=== PATIENT | male | born 1985 | race Caucasian/White ===

== ENCOUNTER 2025-01-16 17:50 | Emergency (ER) | payer OTHER, SELFPAY ==
--- NOTE | 2025-01-16 17:58 | ED.UPPEXIN ---
HPI - Extremity Injury (Upper) General Chief Complaint: Extremity Injury, Upper Stated Complaint: INJURED L HAND Time Seen by Provider: 01/16/25 18:00 Source: patient, RN notes reviewed and old records reviewed Mode of arrival: ambulatory Limitations: no limitations History of Present Illness HPI narrative: Patient to [employer] police tox presents with complaints of dog bite to left hand. He reports that injury happened this afternoon while at work. He arrives with a pressure dressing in place, no active bleeding. Retains full range of motion of the affected hand. Denies any numbness or tingling. Has not taken any medication for his symptoms. He is unsure of his last tetanus, this will be updated today. He denies other injury and trauma. Voices no other concerns or complaints at this time Related Data Allergies Allergy/AdvReac Type Severity Reaction Status Date / Time NKDA Allergy Mild Other Uncoded 01/16/25 17:54 Review of Systems Review of Systems: All systems reviewed & are unremarkable except as noted in HPI and below Constitutional: Constitutional: Reports no additional constitutional complaints ENT: Reports system reviewed and no additional complaints, except as documented Cardiovascular: Cardiovascular: Reports no additional cardiovascular complaints Respiratory: Respiratory: Reports no additional respiratory complaints Gastrointestinal: Gastrointestinal: Reports no additional gastrointestinal complaints Musculoskeletal: Musculoskeletal: Reports no additional musculoskeletal complaints and Reports as per HPI Integumentary/Breasts: Skin/Breast: Reports system reviewed and no additional complaints, except as docu [facility] Social History Social History Smoking status: Never smoker Alcohol intake: current Comments At the time of my signature, I reviewed and agree with the nursing past medical, surgical, social, and family history. There is no relevant family history pertinent to the patient complaint. Exam Const: General: cooperative, no acute distress, alert and awake Orientation/consciousness: oriented to person, oriented to place and oriented to time HENMT: Head: normal to inspection Resp: Effort & Inspection: normal respiratory effort and able to speak in complete sentences Auscultation: clear to auscultation bilaterally, no crackles, no rales, no rhonchi and no wheezes Cardio: Palpation: normal PMI Rate: regular rate Rhythm: regular rhythm Heart sounds: S1 normal heart sound present and S2 normal heart sound present Neuro: General: oriented to person, oriented to place and oriented to time Cranial nerves: Yes CN's II-XII intact bilaterally Extrem: Right upper extremity: Extremity exam: right hand normal capillary refill, neuromotor exam normal, neurosensory exam normal and normal ROM of fingers Hand/finger images:  1. small shallow puncture wound 2. 0.5 cm lac, no active bleeding Psych: Appearance: grossly normal Thought process: Normal thought process present Insight: Good insight present (Psych) Judgement: Good judgement present (Psych) Course Course Level of Care: Express Care Visit Vital Signs Vital signs: Vital Signs Temperature 98.8 F 01/16/25 18:01 Pulse Rate 83 01/16/25 18:01 Respiratory Rate 16 01/16/25 18:01 Blood Pressure 146/81 H 01/16/25 18:01 Pulse Oximetry 100 01/16/25 18:01 Temperature 98.8 F 01/16/25 18:01 Pulse Rate 83 01/16/25 18:01 Respiratory Rate 16 01/16/25 18:01 Blood Pressure 146/81 H 01/16/25 18:01 Pulse Oximetry 100 01/16/25 18:01 Reviewed MDM - Extremity Injury (Upper) MDM Narrative Medical decision making narrative: Patient with dog bite to the left hand. Wound was irrigated and wrapped. No active bleeding. CMS intact. Tetanus updated, start Augmentin. Follow up with primary care provider. Emergency department for new or worse symptoms. Discharge instructions reviewed with patient, as well as provided in writing per nursing staff. The instructions also include specific and strict return/GO TO THE ER as well as f/u information. All questions have been answered, and the patient deny any further questions with discharge and discharge plan. Some parts of this dictation were generated by voice recognition software and may contain typographical and/or grammatical inaccuracies. Differential Diagnosis Differential diagnosis: Likely fracture of hand and other (Puncture wound) Medical Records Attestation: I reviewed the patient's medical records. Imaging Data Attestation: I personally reviewed and interpreted this imaging study as follows: My impression: no acute findings Radiologist's impression: [facility] [address] [place] [address] [place] [address] XRay Report Signed Patient: Arron Alvarado : 1985 MR#: [id number] Age: 39 Acct:[id number] Loc: [id number] ADM Date: 01/16/25Attending Dr: Ordering Physician: Laurel Conte FNP Date of Service: 01/16/25 Procedure(s): XR hand LT 2V Accession Number(s): [id number] cc: Laurel Conte FNP; Da, Yuly STYLES~ EXAMINATION: XR hand LT 2V DATE: 01/16/2025 18:08 INDICATION: Left hand bite. TECHNIQUE: 3 views of left hand were obtained. COMPARISON: None. FINDINGS: Alignment is normal. No fracture. Joint spaces are normal. IMPRESSION: 1. No fracture or radiopaque foreign body. Reviewed, dictated and finalized at location A. ES' AIDE Please be advised this is a medical document. It is intended for vaza-la-ajgo communication. It is written in medical language and may contain unfamiliar abbreviations or verbiage. Medical documents are intended to carry relevant information, facts as evident, and the clinical opinion of the practitioner at the time of the encounter. This report may have been done utilizing a voice recognition system. Attempts have been made to correct errors. However, there may be uncorrected grammatical, spelling, and recognition errors present. The file time of this note does not necessarily represent the time of service. Dictated By: Arash Shi MD 01/16/25 180 Signed By: <Electronically signed by Arash Shi MD in OV> 01/16/25 180 Discharge Plan Discharge Clinical Impression: Animal bite Patient Disposition: Home, Self-Care Condition: Stable Instructions: Antibiotic Form, Animal Bite (ED) Additional Instructions: take medications as prescribed. Follow-up with primary care provider. Emergency department for any new or worsening symptoms Patient Language: Yi Prescriptions: New amoxicillin-pot clavulanate 875-125 mg tablet 1 tablet PO Q12H Qty: 14 0RF Follow-up/Referrals: Da,JENSEN Emery [Primary Care Provider] - 1 Week Stand Alone Forms: Work/School Release IP Time of Disposition: 19:00
[2025-01-16 18:01] VITALS: BP 146/81; PULSE 83; RESP 16; TEMP 37.1; O2SAT 100
[2025-01-16] MEDS: TETANUS,DIPHTHERIA,AC PERTUSSIS ADULT (0.5 ML) BOOSTRIX IM (18:11)
== END 2025-01-16 19:08 | disposition home or self-care (01) ==
PROVIDERS: Emergency Provider Nurse Practitioner Family; PCP Physician Assistant
DX: S61.452A Open bite of left hand, initial encounter (principal); W54.0XXA Bitten by dog, initial encounter; Z23 Encounter for immunization
CPT/HCPCS: 73120; 90715; 99203; G0463